=== PATIENT | female | born 1985 | race African-American/Black ===

== ENCOUNTER 2022-07-04 09:00 | Outpatient (CLI) | payer OTHER, SELFPAY ==
--- NOTE | ~2022-07-04 | US_ITS ---
EXAMINATION: US renal BI DATE: 07/04/2022 09:44 INDICATION: Renal insufficiency TECHNIQUE: Multiple grayscale and Doppler ultrasound images of the kidneys were obtained. COMPARISON: None. FINDINGS: There are innumerable cysts of both kidneys. The right kidney measures 15.7 x 7.7 x 8.9 cm. The left kidney measures 14.1 x 7.1 x 7.1 cm. The kidneys demonstrate normal parenchymal echogenicit y. There is no hydronephrosis. The bladder is normal. IMPRESSION: 1. Polycystic kidney disease. Reviewed, dictated and finalized at location B. [employer]
== END 2022-07-04 09:01 | disposition home or self-care (01) ==
PROVIDERS: PCP Internal Medicine Infectious Disease; Visit Provider Internal Medicine Infectious Disease
DX: N28.89 Other specified disorders of kidney and ureter (principal); Q61.3 Polycystic kidney, unspecified
CPT/HCPCS: 76775

== ENCOUNTER 2023-06-07 09:23 | Emergency (ER) | payer OTHER, SELFPAY ==
--- NOTE | 2023-06-07 09:29 | ED.FEMALEGU ---
HPI - Female Genitourinary General Chief complaint: Urogenital-Female Stated complaint: blood in urine Time Seen by Provider: 06/07/23 09:27 Source: patient Mode of arrival: ambulatory Limitations: no limitations History of Present Illness HPI Narrative: Carola is a 37-year-old female patient presenting to the ER today with complaints of possible blood in her urine. She reports she has been having some possible blood in her urine verses blood coming from her vagina. She reports that she has come off of Depo over the past year and just started having periods again in March. States she started around the beginning of the month in March, April, and May however the bleeding has became light and more spotting. Denies any abdomen pain or back pain. Is considered bleeding may be coming from her kidneys or bladder so she came into ER for evaluation today. Has history of cyst on her kidneys. Related Data Home Medications Medication Instructions Recorded Confirmed amlodipine 2.5 mg tablet 2.5 mg PO DAILY 07/02/21 05/12/23 metformin 1,000 mg tablet 1,000 mg PO BID 07/02/21 05/12/23 metoprolol tartrate 25 mg tablet 25 mg PO BID 07/02/21 05/12/23 valsartan 320 mg tablet 320 mg PO DAILY 07/02/21 05/12/23 Allergies Allergy/AdvReac Type Severity Reaction Status Date / Time No Known Allergies Allergy Verified 05/12/23 10:01 Review of Systems Review of Systems: Pertinent positives per HPI. Patient denies any fever, chills, rash, headache, visual changes, dizziness, cough, shortness of breath, chest pain, palpitations, nausea, vomiting, diarrhea, constipation, abdominal pain. [facility] Past Medical History Medical History Chlamydia Cyst of kidney, acquired Diabetes Hypertension Umbilical hernia Surgical History Surgical History H/O LEEP 05/09/08 LGSIL MAGUI I History of 03/18/05 Primary C/S - severe preeclampsia, hemolysis, elevated liver enzymes, & low platelet count syndrome History of colposcopy with cervical biopsy 03/11/17 benign 03/27/08 chronic cervicitis History of hernia repair 08/17/18 Family History Family History Grandparent Diabetes mellitus maternal grandmother Hypertension maternal grandmother Social History Social History Smoking status: Never smoker Alcohol intake: current Alcohol use details: socially Substance use: never Substance use type: does not use Lack of Transportation: No Lack of Food: Never True Current Housing: I Have Housing Concerned About Future Housing: No Difficulty Paying Gas/Electric Bills: No Difficulty Paying for Meds: YES Currently Unemployed: No Education: High School Diploma/GED Difficulty w/ Childcare or Family Care: No Living arrangements: with family Occupation/Education: occupation Additional occupation/education comments: HEALTHCARE WORKER Gender identity (if verbalized by the patient): Female Sexual Orientation (if Verbalized by the Patient): Straight or Heterosexual Comments At the time of my signature, I reviewed and agree with the nursing past medical, surgical, social, and family history. There is no relevant family history pertinent to the patient complaint. Exam Narrative: General: Well-developed, well nourished, in no apparent distress Head: Normocephalic, atraumatic. Cardio: Regular rate and rhythm, s1 and s2 normal, no murmur appreciated. Resp: Clear to auscultation bilaterally, no rhonchi, rales, wheezing or rubs. Abdomen: Soft, pliable, bowel sounds present in all quadrants, mild tender to palpation over the suprapubic bladde/pelvis, no CVAT tenderness. : Pelvic exam performed with (Yael WALKER) at bedside. Verbal consent obtained from theron
[2023-06-07 09:37] VITALS: BP 159/92; PULSE 88; RESP 20; TEMP 36.4; O2SAT 100
[2023-06-07 10:11] LABS: Appearance Urine Cloudy (Clear); Bacteria Urine Rare /hpf; Bilirubin Urine Negative (Negative); Blood Urine 3+ (Negative); Color Urine Yellow (Yellow); Glucose Urine UA Negative (Negative); Ketones Urine Trace mg/dL (Negative); Leukocyte Esterase Ur Negative LEU/UL (Negative); Need Manual Microscopic Reviewed; Nitrate Urine Negative (Negative); Non Pathogenic Casts 0-2; Protein Urine Trace mg/dL (Negative); RBC Urine 0-2 /hpf (0-2); Specific Grav Ur 1.015 (1.001-1.035); Squamous Epithelial Cell Urine Moderate /hpf (Few); Urobilinogen Urine 0.2 mg/dL (<2.0); pH Urine 6.5 (5.0-9.0)
[2023-06-07 10:13] LABS: Add Urine Microscopic? YES
[2023-06-07 10:56] VITALS: RESP 16
== END 2023-06-07 10:56 | disposition home or self-care (01) ==
PROVIDERS: Emergency Provider Nurse Practitioner Family; PCP Internal Medicine Infectious Disease
DX: N39.0 Urinary tract infection, site not specified (principal); E11.9 Type 2 diabetes mellitus without complications; I10 Essential (primary) hypertension; Z79.84 Long term (current) use of oral hypoglycemic drugs
CPT/HCPCS: 81001; 81025; 87086; 99284

== ENCOUNTER 2024-02-16 15:31 | Outpatient (CLI) | payer OTHER, SELFPAY ==
--- NOTE | ~2024-02-16 | MM_ITS ---
EXAMINATION: MM screening josh BI w mason HISTORY: Screening TECHNIQUE: Craniocaudal and mediolateral oblique 3-D tomosynthesis images were obtained and synthetic 2-D images were generated. CAD analysis was submitted and interpreted. COMPARISON: No prior mammogram is available for comparison at this institution. BREAST PARENCHYMAL COMPOSITION: Not dense: There are scattered areas of fibroglandular density. FINDINGS: There is no evidence of suspicious mass, calcification, or architectural distortion to sugg est malignancy in either breast. There has been no suspicious interval change. IMPRESSION: 1. No mammographic evidence of malignancy. 2. Recommend routine screening mammography in one year. BI-RADS Category 1: Negative Reviewed, dictated and finalized at location B.
== END 2024-02-16 15:32 | disposition home or self-care (01) ==
PROVIDERS: PCP Internal Medicine Infectious Disease; Visit Provider Obstetrics & Gynecology
DX: Z12.31 Encounter for screening mammogram for malignant neoplasm of breast (principal)
CPT/HCPCS: 77063; 77067